=== PATIENT | female | born 1970 | race Caucasian/White ===

== ENCOUNTER → 2017-09-08 | Day surgery (SDC) | payer BC, MEDICAID ==
[2017-09-06 10:30] VITALS: BMI 30.2
[~2017-09-08] MED LIST: LIDOCAINE 1% 20 ML VIAL (10MG/ML) FOR IV START INTRADERMA PRN; LIDOCAINE 1% INJ 10MG/ML (20 ML MDV) ONE; PROPOFOL 10 MG/ML 20 ML VIAL IV ONE
--- NOTE | 2017-09-08 05:53 | P.GSHP ---
History of Present Illness H&P Date: 09/08/17 CHIEF COMPLAINT: Change in bowel habits HISTORY OF PRESENT ILLNESS: The patient is a 47-year-old female who presents with change in bowel habits. Lower endoscopy was offered for further evaluation and management. PAST MEDICAL HISTORY: Please see list. PAST SURGICAL HISTORY: Please see list. MEDICATIONS: Please see list. ALLERGIES: Please see list. SOCIAL HISTORY: No illicit drug use FAMILY HISTORY: No reports of Crohn disease or ulcerative colitis. REVIEW OF ORGAN SYSTEMS: CONSTITUTIONAL: No reports of fevers or chills. PHYSICAL EXAM: VITAL SIGNS: Stable GENERAL: Well-developed pleasant in no acute distress. HEENT: No scleral icterus. Extraocular movements grossly intact. Moist buccal mucosa. NECK: Supple without lymphadenopathy. CHEST: Unlabored respirations. Equal bilateral excursions. CARDIOVASCULAR: Regular rate and rhythm. Distal 2+ pulses. ABDOMEN: Soft, nontender, nondistended. MUSCULOSKELETAL: No clubbing, cyanosis, or edema. ASSESSMENT: 1. Change in bowel habits. PLAN: 1. Recommend proceeding with a lower endoscopy Past Medical History Past Medical History: GERD/Reflux Additional Past Medical History / Comment(s): VARICOSE VEINS, IBS, SEASONAL ALLERGIES History of Any Multi-Drug Resistant Organisms: None Reported Past Surgical History: Section Additional Past Surgical History / Comment(s): LAPAROSCOPIC OVARIAN CYSTECTOMY , ANDRES PROCEDURE, EGD, Past Anesthesia/Blood Transfusion Reactions: Motion Sickness, Postoperative Nausea & Vomiting (PONV) Smoking Status: Never smoker - Past Family History Mother Family Medical History: Cancer Additional Family Medical History / Comment(s): THYROID CANCER Medications and Allergies Home Medications Medication Instructions Recorded Confirmed Type Fluticasone Nasal [place] [Flonase 1 spray EA NOSTRIL DAILY 03/08/16 09/06/17 History Nasal [place]] ALPRAZolam [Xanax] 0.25 mg PO HS PRN 03/11/16 09/06/17 History Cetirizine HCl [Zyrtec] 10 mg PO DAILY 09/06/17 09/06/17 History Phentermine HCl [Adipex-P] 37.5 mg PO QAM 09/06/17 09/06/17 History traZODone HCL 100 mg PO HS PRN 09/06/17 09/06/17 History Allergies Allergy/AdvReac Type Severity Reaction Status Date / Time No Known Allergies Allergy Verified 09/06/17 10:26
[2017-09-08 13:03] VITALS: RESP 16; TEMP 97.8
[2017-09-08] MEDS: LACTATED RINGERS 1,000 ML IV SCH ×2 (13:12→13:14)
--- NOTE | 2017-09-08 13:41 | P.PCN ---
Date of Procedure: 09/08/17 Description of Procedure: PREOPERATIVE DIAGNOSIS: Colonoscopy screening. POSTOPERATIVE DIAGNOSIS: Colonoscopy screening. Sigmoid colitis Sigmoid polyp Cecal polyp OPERATION: Colonoscopy to the ileocecal valve and appendiceal orifice. Colonoscopy with hot snare biopsy Colonoscopy with cold forceps biopsy SURGEON: Padmini Ramirez MD. ANESTHESIA: MAC. INDICATIONS: The patient is a 47-year-old female who presents for her first colonoscopy screening. Benefits and risks were described and informed consent was obtained. DESCRIPTION OF PROCEDURE: The patient had undergone Gatorade, MiraLAX and Dulcolax prep. She had been brought into the operating room and laid in the left lateral decubitus position. After adequate intravenous sedation, the rectum was examined with 2% lidocaine jelly. No external hemorrhoids were encountered. The rectal tone was within normal limits. No lesions were palpated in the rectal vault. An Olympus colonoscope was advanced until the ileocecal valve and appendiceal orifice were clearly viewed. The prep was good with visualization of the mucosal folds. The scope was removed with visualization of each mucosal fold. No scattered diverticulosis was encountered. Colonic polyps were found and cold forcep biopsy or snare polypectomy. Focal colitis was found and biopsied of the sigmoid colon. No grade 1 internal hemorrhoids were found. The colon was desufflated. The patient had tolerated the procedure well. Withdrawal time was over 6 minutes. FINDINGS: No internal hemorrhoids No external hemorrhoids No arteriovenous malformations. Removal of 2 polyps: - Snare polypectomy at cecum, 5 mm tubulovillous adenoma polyp. - Cold forceps biopsy at 18 cm from the anal verge, 4 mm polyp. Multiple biopsies of the sigmoid colon for colitis No diverticular disease RECOMMENDATIONS: Repeat colonoscopy 5 years, 2022 Plan - Discharge Summary New Discharge Prescriptions: No Action Fluticasone Nasal [place] [Flonase Nasal [place]] 1 spray EA NOSTRIL DAILY ALPRAZolam [Xanax] 0.25 mg PO HS PRN PRN Reason: Anxiety Phentermine HCl [Adipex-P] 37.5 mg PO QAM Cetirizine HCl [Zyrtec] 10 mg PO DAILY traZODone HCL 100 mg PO HS PRN PRN Reason: Insomnia Discharge Medication List Fluticasone Nasal [place] [Flonase Nasal [place]] 1 spray EA NOSTRIL DAILY 03/08/16 [History] ALPRAZolam [Xanax] 0.25 mg PO HS PRN 03/11/16 [History] Cetirizine HCl [Zyrtec] 10 mg PO DAILY 09/06/17 [History] Phentermine HCl [Adipex-P] 37.5 mg PO QAM 09/06/17 [History] traZODone HCL 100 mg PO HS PRN 09/06/17 [History] Patient Instructions/Handouts: *Sur[facility] - (Anesthesia) Endoscopy Discharge Instructions, Colonoscopy (DC)
[2017-09-08 13:53] VITALS: BP 122/87; PULSE 79
== END | disposition home or self-care (01) ==
LOC: ORWHC2ENDO 12:32
PROVIDERS: ATTEND Surgery Plastic and Reconstructive Surgery
DX: K63.5 Polyp of colon (principal); K52.9 Noninfective gastroenteritis and colitis, unspecified; K21.9 Gastro-esophageal reflux disease without esophagitis; F41.9 Anxiety disorder, unspecified; Z79.899 Other long term (current) drug therapy; Z79.51 Long term (current) use of inhaled steroids
CPT/HCPCS: 81025; 88305; 45385; 45380; J2001; J2704

== ENCOUNTER → 2023-10-09 | Outpatient (CLI) | payer OTHER ==
--- NOTE | 2023-10-09 15:12 | CT ---
EXAMINATION TYPE: CT left knee - [facility] Protocol CT DLP: 819 mGycm, Automated exposure control for dose reduction was used. DATE OF EXAM: 10/09/2023 2:49 PM COMPARISON: None CLINICAL INDICATION:Female, 53 years old with history of M25.562 PAIN L KNEE, M17.12 OA KNEE; PHH, pr e-op left total knee TECHNIQUE: Axial images were obtained of the CT left knee - [facility] Protocol, Additional coronal and sag ittal reformatted images and soft tissue and bone window were obtained for review. 3-D reconstruction was created on a separate workstation. Contrast used: mL of , (None if empty) Oral contrast used: (None if empty) FINDINGS: The visualized portion of the hips demonstrate mild osteoarthrosis changes with osteophyte formation of the acetabulum. No acute intrapelvic process. The bony structures of the pelvis are inta ct. The visualized knee demonstrates osteophyte formation of the tibial plateau, the patella and femoral condyles. There is joint space narrowing and subchondral sclerosis. No evidence of fracture. Visualized ankle demonstrates multifocal osteoarthrosis changes with osteophyte formation and mild helena int space narrowing. No evidence of fractures. IMPRESSION: Severe osteoarthrosis changes of the knee.
== END | disposition home or self-care (01) ==
LOC: RADCTMAIN 13:53
PROVIDERS: ATTEND Orthopaedic Surgery
DX: Z01.818 Encounter for other preprocedural examination (principal); M17.0 Bilateral primary osteoarthritis of knee; M25.871 Other specified joint disorders, right ankle and foot; M25.872 Other specified joint disorders, left ankle and foot